=== PATIENT | female | born 1965 | race Caucasian/White ===

== ENCOUNTER 2019-11-30 16:56 | Observation (INO) | payer SELFPAY ==
[2019-11-30] MEDS ORDERED: Aspirin 325 MG TAB ONE (17:21)
--- NOTE | 2019-11-30 17:31 | CT ---
CT BRAIN WITHOUT CONTRAST: 11/30/19 HISTORY: 53-year-old female with slurred speech, dizziness, facial drooping, visual disturbances. Level II str enrique. FINDINGS: No evidence of acute infarct, hemorrhage, midline shift or abnormal extra-axial fluid collections are seen. The ventricular size is normal and the basilar cisterns patent. The bony calvarium is intact. The visualized paranasal sinuses and mastoid air cells are well aerated. IMPRESSION: No CT evidence of acute intracranial process. Discussed over the telephone with ER physician, Dr. Gt Alonso at 5:14 p.m. Code SHARA POS: JORDON
[2019-11-30 17:51] LABS: PTT 31.6 SEC (22.9-36.1); Prothrombin Time 12.7 SEC (12.0-14.7)
[2019-11-30 17:54] LABS: Hemoglobin 20.9 g/dL (12.0-16.0); Mean Corpuscular HGB CONC 34.4 g/dL (32.0-36.0); Mean Corpuscular Hemoglobin 34.3 pg (27.0-31.0); Mean Corpuscular Volume 99.8 fL (78.0-98.0); Mean Platelet Volume 7.9 fL (7.4-10.4); Platelet Count 256 thou/uL (130-400); RBC Distribution Width 12.7 % (11.5-14.5); Red Blood Cell (RBC) Count 6.07 mill/uL (4.20-5.40); White Blood Cell (WBC) Count 9.4 thou/uL (4.8-10.8)
[2019-11-30 17:58] LABS: ALT (SGPT) 42 U/L (8-55); AST (SGOT) 45 U/L (5-34); Albumin 4.7 g/dL (3.5-5.0); Alkaline Phosphatase 67 U/L (40-110); Anion Gap 21 mmol/L (10-20); BUN (Urea Nitrogen) 7 mg/dL (9.8-20.1); Bilirubin, Total 0.4 mg/dL (0.2-1.2); CK (CPK) 51 U/L (29-168); Calc. Creatinine Clearance 0 mL/min (70-130); Calcium 9.8 mg/dL (7.8-10.44); Carbon Dioxide 19 mmol/L (22-29); Chloride 103 mmol/L (98-107); Estimated GFR-MDRD 80; Globulin 3.3 g/dL (2.4-3.5); Glucose 117 mg/dL (70-105); Potassium 4.7 mmol/L (3.5-5.1); Sodium 138 mmol/L (136-145)
[2019-11-30 18:00] LABS: #Basophils 0.1 thou/uL (0.0-0.2); #Eosinphils 0.2 thou/uL (0.0-0.7); #Lymphocytes 1.8 thou/uL (1.20-3.40); #Monocytes 0.7 thou/uL (0.11-0.59); #Neutrophils 6.6 thou/uL (1.40-6.50); %Basophils 0.7 % (0.0-1.0); %Lymphocytes 18.9 % (21.0-51.0); %Monocytes 7.8 % (0.0-10.0); %Neutrophils 70.6 % (42.0-75.0)
[2019-11-30] MEDS ORDERED: Lorazepam 2 MG/ML VIAL SLOW IVP PRN (20:06)
[2019-11-30] MEDS ORDERED: Diazepam 5 MG TAB PO PRN (20:42)
[2019-11-30] MEDS ORDERED: Acetaminophen 650 MG Suppository PR PRN (20:47)
[2019-11-30] MEDS ORDERED: Acetaminophen 325 MG TAB PO PRN (20:47)
[2019-11-30] MEDS ORDERED: Ondansetron PF 4 MG/2 ML Vial IVP PRN (20:47)
[2019-11-30 20:51] LABS: Hemoglobin 19.6 g/dL (12.0-16.0)
[2019-11-30 20:56] VITALS: BMI 29.4
[2019-11-30] MEDS ORDERED: Diazepam 5 MG TAB PO SCH (21:00)
[2019-11-30] MEDS ORDERED: Thiamine HCl 200 MG/2 ML VIAL IM SCH (21:00)
[2019-11-30] MEDS ORDERED: Nicotine 14 MG PATCH TD SCH (21:00)
[2019-11-30] MEDS ORDERED: Atorvastatin Calcium 40 MG TAB PO SCH (21:00)
--- NOTE | 2019-11-30 21:35 | HP ---
TIME OF ASSESSMENT: 1899 CHIEF COMPLAINT: Dizziness and slurred speech. PRIMARY CARE PHYSICIAN: Dr. Ferrari. HISTORY OF PRESENT ILLNESS: Ms. Bae is a 53-year-old woman with a history of essential hypertension, vertigo, and heavy alcohol use, who presents to the emergency department after developing sudden onset dizziness that lasted approximately 26 minutes according to the patient. She had experienced similar symptoms like this before with vertigo; however, what was unusual was vision changes that she experienced as well. She states she felt as if her eyes were bouncing up and down and she was unable to focus on her vision. This has since resolved. She states her boyfriend noted slurring of her speech, but she does not recall experiencing that. Denies any facial numbness or weakness, but does report numbness and tingling of her tongue and lips. Denies any extremity numbness or weakness. She is unsure of any staggering gait due to not attempting to walk when this happened. She was carried to the ambulance by EMS. She states by the time they arrived to her home, her symptoms had settled. On arrival to the emergency department, she was back to baseline. The patient denies having any headaches. No nausea or vomiting. No chest pain or palpitations or shortness of breath. She has not had any recent fevers or chills. She does report feeling jittery when she does not drink, but denies any history of alcohol withdrawal seizures. The patient states she tends to drink 6 to 8 glasses of wine or 12-ounce cans of beer a day. Denies any drug use. EMERGENCY DEPARTMENT COURSE: In the emergency department, the patient underwent CT imaging of her head, which showed no acute intracranial process. LABORATORY DATA: She had laboratory studies done, which showed a white count of 9.4, hemoglobin 20.9, hematocrit 60.6, platelets 256, and neutrophils 78.6. Sodium 138, potassium 4.7, BUN 7, creatinine 0.76, GFR 80, glucose 117, total bilirubin 0.4, AST 45, ALT 42, alkaline phosphatase 67. CK 51, troponin negative. Albumin 4.7. She had an EKG done showing sinus tachycardia with a heart rate of 102. She was given 1 L of normal saline and 325 mg of aspirin. Her heart rate did settle down to the 80s. PAST MEDICAL HISTORY: 1. Essential hypertension. 2. Anxiety. 3. Heavy alcohol use. PAST SURGICAL HISTORY: 1. Bilateral breast implants. 2. Tubal ligation. SOCIAL HISTORY: She reports smoking 1-1/2 packs per day for 30 years. Also reports drinking 6 to 8 glasses of wine or beer a day. Denies illicit drug use. ALLERGIES: NO KNOWN DRUG ALLERGIES. CURRENT MEDICATIONS: 1. Alprazolam. 2. Norvasc. 3. Lipitor. 4. Ecotrin. 5. Valsartan. PHYSICAL EXAMINATION: GENERAL: The patient appears slightly anxious, but no real tremors. She has a generally flushed appearance. She is in no acute distress. VITAL SIGNS: Temperature 98.7, pulse 75, blood pressure 162/95, respirations 16 , and O2 saturation 97% on room air. HEENT: Normocephalic and atraumatic. Pupils are equal, round, reactive to light. Sclerae are without icterus. Oropharynx is clear. Extraocular movements are intact. No nystagmus present. Visual mcleod are intact. Oropharynx is clear. No tongue deviation. NECK: Supple. Full range of motion. CARDIAC: Regular rate and rhythm. LUNGS: Clear to auscultation bilaterally without any wheezes, rales, or rhonchi. ABDOMEN: Soft, nontender, nondistended with bowel sounds present. No guarding or rigidity. EXTREMITIES: No lower extremity edema or swelling. NEUROLOGIC: Alert and oriented x3. Facial movements normal. Facial sensation intact. Power 5/5 in all limbs. No cerebellar signs on exam. SKIN: Warm and dry with flushed appearance in her face and bilateral upper extremities. No erythema or warmth. No rashes. INVESTIGATIONS: As mentioned above in the HPI. IMPRESSION AND PLAN: Ms. Bae is a 53-year-old woman, who presented with sudden onset dizziness, speech changes and vision changes lasting approximately 30 minutes that have fully resolved. She is being admitted for the following. 1. Transient ischemic attack, rule out. CT brain done in the emergency department unremarkable. We will plan for an MRI in the morning. At present, no neuro deficits on exam. She does have a history of vertigo. States it was similar to that, but in the past, she was not experiencing speech changes or vision changes. We will continue to monitor. Consultation placed to Neurology. Patient was given aspirin in the ER. We will continue daily aspirin and start a statin. We will obtain echo. We will also check bilateral carotid Doppler. 2. Heavy alcohol use. PARISA protocol initiated. P.r.n. lorazepam for anxiety/agitation. We will check alcohol level. Also check urine drug screen. We will check thiamine, folate and vitamin B12. 3. Essential hypertension. Monitor blood pressure and resume home medication once verified. 4. Gastrointestinal prophylaxis. Famotidine 10 mg p.o. b.i.d. 5. Deep venous thrombosis prophylaxis. The patient is ambulatory. 6. Code status: Full. Surrogate decision maker is her boyfriend Jeremiah Ordaz. Case discussed with the attending who agrees with plan of care as described above. Job ID: [id number]
[2019-11-30] MEDS: Famotidine 20 MG TAB PO SCH (22:17)
--- NOTE | 2019-11-30 22:37 | ULT ---
Ultrasound Doppler duplex carotid: DATE: 11/30/2019 HISTORY: 53-year-old female with TIA/CVA: Dizziness, visual changes, and hypesthesia of tongue and lips. TECHNIQUE: Grayscale, color-flow, and spectral analysis, of major arteries of neck. FINDINGS: There is mild plaque at the bilateral carotid bulbs. Prominent bilateral cervical lymph nodes are noted. Highest peak systolic velocities of internal carotid arteries: Right internal carotid: 85 cm/s Left internal carotid: 75 cm/s Vertebral artery flow is antegrade bilaterally. IMPRESSION: 1. Mild atherosclerosis of origins of bilateral internal carotid arteries. 2. No evidence of hemodynamically significant stenosis
[2019-11-30 23:08] LABS: Bacteria/HPF 2+ HPF (None Seen); Bilirubin Negative (Negative); Blood, Urine Negative (Negative); Clarity Clear (Clear); Glucose, Urine (Dipstick) 50 mg/dL (Negative); Leukocyte 25 Leu/uL (Negative); Nitrite Negative (Negative); Protein, Urine (Dipstick) Negative (Neg-Trace); RBC/HPF 0-3 HPF (0-3); Squamous Epithelial 0-3 HPF (0-3); Urobilinogen Normal mg/dL (Less than 2)
[2019-11-30 23:10] LABS: Urine Culture Reflex Yes Yes
[2019-11-30 23:18] LABS: Amphetamine Not Detected (NotDetected); Barbiturates Screen Not Detected (NotDetected); Benzodiazepine Screen Detected (NotDetected); Cocaine Metabolite Screen Not Detected (NotDetected); Medtox Control Line Valid? VALID (VALID); Medtox Reader # READER 4; Methadone Not Detected (NotDetected); Methamphetamine Not Detected (NotDetected); Opiate Screen Not Detected (NotDetected); Oxycodone Screen Not Detected (NotDetected); Phencyclidine (PCP) Not Detected (NotDetected); THC/Cannabinoid Screen Not Detected (NotDetected); Tricyclic Screen Not Detected (NotDetected)
[2019-12-01] MEDS ORDERED: Diazepam 5 MG TAB PO PRN (04:00)
[2019-12-01 07:26] VITALS: TEMP 98.1
[2019-12-01] MEDS ORDERED: FLU VACC QS2019-20(6MOS UP)/PF 60 MCG/0.5 ML SYRINGE IM ONE (09:00)
[2019-12-01] MEDS ORDERED: Multivitamin W/ Minerals 1 TAB PO SCH (09:00)
[2019-12-01] MEDS ORDERED: Magnesium Oxide 400 MG TAB PO SCH (09:00)
[2019-12-01] MEDS ORDERED: Aspirin 81 mg Enteric Coated Tablet PO SCH (09:00)
[2019-12-01] MEDS ORDERED: Folic Acid 1 MG TAB PO SCH (09:00)
[2019-12-01] MEDS ORDERED: Thiamine 100 MG TAB PO SCH (09:00)
[2019-12-01] MEDS: Famotidine 20 MG TAB PO SCH (09:23)
[2019-12-01 11:20] VITALS: BP 163/92
--- NOTE | 2019-12-01 12:14 | CON ---
DATE OF CONSULTATION: 12/01/2019 CONSULTING PHYSICIAN: Hospitalist Service. IMPRESSION: 1. Transient vertigo, possibly secondary to transient ischemic attack related to polycythemia. 2. History of tobacco use. 3. Mild hyperlipidemia. PLAN: 1. Start aspirin 81 mg per day. 2. Lipitor 40 mg per day. 3. Oncology's recommendations in regard to her polycythemia. HISTORY OF PRESENT ILLNESS: Ms. Bae is a 53-year-old woman with no significant past history other than some intermittent vertigo. She had an episode of vertigo with oscillopsia lasting about 25 minutes. There was no associated headache, nausea, vomiting, lateralized weakness or numbness. She had some perioral tingling in the past. She has never had any transient neurologic deficits otherwise. She had a CT scan of the brain done, which was unremarkable. Her carotid ultrasound was clear. Her cholesterol ratio was 5.0. Tox screen was negative. Urinalysis was unremarkable. Her H and H showed hemoglobin of 20 and hematocrit of 60. She is a regular drinker, which reportedly is both liquor and beer. She smokes on a regular basis. PAST MEDICAL HISTORY: Otherwise, negative. ALLERGIES: NONE. SOCIAL HISTORY: As noted. FAMILY HISTORY: Noncontributory. REVIEW OF SYSTEMS: Ten-system review of systems is otherwise negative. PHYSICAL EXAMINATION: VITAL SIGNS: Blood pressure 156/81, pulse 69, respirations 16, and temperature 98.1. HEENT: Pupils equal and reactive. Conjunctivae clear. Oropharynx clear. No nystagmus was present. NECK: Supple. EXTREMITIES: No cyanosis, clubbing or edema. NEUROLOGIC: She is alert and appropriate. Her speech is fluent and clear. Cranial nerves are intact. Motor exam showed equal strength. Sensations intact bilaterally. She can walk independently. No abnormal movements were seen. DIAGNOSTIC DATA: EKG shows a sinus rhythm. SUMMARY: Middle-aged woman with polycythemia and transient vertigo. We will start aspirin and Lipitor. She appears stable for discharge. She is unable to tolerate an MRI. Job ID: [id number]
--- NOTE | 2019-12-01 12:19 | CON ---
DATE OF CONSULTATION: REASON FOR CONSULTATION: Elevated hemoglobin. HISTORY OF PRESENT ILLNESS: Ms. Bae is a 53-year-old female with a history of hypertension, daily alcohol use, and tobacco use, who presented to the emergency room with acute onset of dizziness and slurred speech. She was brought to the ER by EMS. On arrival to the emergency room, her symptoms had resolved. She underwent a brain CT, which showed no evidence of acute intracranial process. She underwent a carotid Doppler study, which showed mild atherosclerosis of the bilateral internal carotid arteries. CBC was drawn, which showed a white count of 9.4, hemoglobin of 20.9, and hematocrit of 60.6. Her platelet count was 256,000. She was admitted for further workup. The patient has a 45 pack-year history of smoking. She states she drinks 8 glasses of wine per day. She does state that she drinks plenty of water as well. She states that she has never been told her hemoglobin is elevated before. She has no family history of hematological disorder or cancer. She denies any shortness of breath, chest pain, itching, or rash. She does think that she has sleep apnea. She states she wakes herself snoring several times at night. She has been seen by Neurology and started on aspirin. She has had no further symptoms since admission. PAST MEDICAL HISTORY: 1. Hypertension. 2. Heavy daily alcohol use. 3. Tobacco use. PAST SURGICAL HISTORY: 1. Bilateral breast implants. 2. Tubal ligation. ALLERGIES: NO KNOWN DRUG ALLERGIES. HOME MEDICATIONS: 1. Alprazolam p.r.n. 2. Amlodipine 10 mg daily. 3. Valsartan 160 mg daily. FAMILY HISTORY: No history of hematological disorder. SOCIAL HISTORY: Single. No children. Lives with her significant other. REVIEW OF SYSTEMS: A 10-point review of systems is negative except for noted in HPI. PHYSICAL EXAMINATION: VITAL SIGNS: Temperature is 98.1, pulse is 85, respiratory rate 16, BP is 163/92. She is 96% on room air. GENERAL: This is a well-developed, well-nourished female, in no acute distress. HEENT: Normocephalic, atraumatic. Pupils are equal and reactive to light. NECK: Supple. CV: Regular rate and rhythm. LUNGS: Clear. ABDOMEN: Soft. Bowel sounds are positive. EXTREMITIES: There is no clubbing or cyanosis. SKIN: No rash. She does have a carina complexion. HEMATOLOGICAL: No petechiae or purpura. NEUROLOGICAL: Nonfocal. PERTINENT LABS AND X-RAYS: Current hemoglobin is 19.6, hematocrit is 57.7. PT is 12.7, INR is 1, PTT is 31.6. Sodium 138, potassium 4.7, chloride 103, CO2 is 19, BUN is 7, creatinine 0.76, calcium 9.8, bilirubin 0.4, AST is 45, ALT is 42, alkaline phosphatase is 67, creatine kinase 51. Troponin is negative. Serum total protein is 8, albumin 4.7, globulin 3.3. B12 is 307, folate is 8.4. She has 2+ bacteria in her urine. Her drug screen was positive for benzos. Radiology per history of present illness. ASSESSMENT: 1. Polycythemia vera, likely secondary to obstructive sleep apnea and heavy tobacco use. 2. Transient ischemic attack, resolved. DISCUSSION: The patient likely has secondary polycythemia both from tobacco use and obstructive sleep apnea. She was instructed to stop smoking or at least cut back if possible. I recommend that she is to stay on aspirin daily. She will have a JAK2 and erythropoietin drawn here. She was instructed to follow up in our clinic next week to begin phlebotomy. I encouraged her to stay well hydrated and cut back on alcohol. She can be discharged from our perspective to begin treatment next week. Thank you for the consult. Job ID: [id number]
--- NOTE | 2019-12-01 14:00 | DIS ---
DATE OF ADMISSION: 11/30/2019 DATE OF DISCHARGE: 12/01/2019 PRIMARY CARE PROVIDER: Dr. Rodney Ferrari. DISPOSITION: Discharged home. FINAL DIAGNOSES: Dizziness, presumptive TIA diagnosis, polycythemia secondary, nicotine dependence, hypertension, alcohol dependence. DISCHARGE MEDICATIONS: 1. Valsartan 160 mg p.o. daily. 2. Amlodipine 10 mg a day. 3. Lipitor 40 mg a day. 4. Aspirin 81 mg a day. DIET: Heart healthy. CODE STATUS: Full. PENDING AT TIME OF DISCHARGE: An echocardiogram was done and is pending. ALLERGIES: TO MEDICATIONS, NONE. HOSPITAL COURSE: The patient was admitted to the Hospitalist Service through [facility] with a diagnosis of dizziness, slurred speech. She was placed in the hospital. CT scan of the brain was unremarkable. Carotid Doppler was unremarkable. The patient was seen in consultation by Neurology and Hematology, who stated the patient could go home. Neurology recommended statin plus aspirin. MRI of the brain was canceled after that. Laboratory studies done in the emergency room, comprehensive metabolic profile; sodium of 138, potassium 4.7, CO2 of 19, creatinine 0.76, BUN 7. Vitamin B12 was 307, folate was 8.4, ammonia level was 28. INR was 1.0. Hematology; hemoglobin 20.9, followup 19.6, white cell count 9.4, platelet count 256,000. Urine drug screen is only positive for benzodiazepine. Carotid ultrasound revealed no stenosis. The patient is being discharged to follow up with PCP in 3 days. Followup has been arranged with Oncology, Dr. Jose Miguel Mccracken for 04/20 at 10:30 a.m. Job ID: [id number]
== END 2019-12-01 12:25 | disposition home or self-care (01) ==
LOC: ERS 16:56 → 2SE 18:52
PROVIDERS: ADMIT Family Medicine; ATTEND Family Medicine
DX: R42 Dizziness and giddiness (principal); R47.81 Slurred speech; H53.8 Other visual disturbances; R29.810 Facial weakness; D75.1 Secondary polycythemia; F17.210 Nicotine dependence, cigarettes, uncomplicated; I10 Essential (primary) hypertension; F10.20 Alcohol dependence, uncomplicated; F41.9 Anxiety disorder, unspecified; I65.23 Occlusion and stenosis of bilateral carotid arteries; E78.5 Hyperlipidemia, unspecified; Z79.899 Other long term (current) drug therapy
CPT/HCPCS: 36415; 36416; 70450; 80053; 80061; 80306; 80307; 81001; 82140; 82550; 82607; 82746; 84425; 84484; 85025; 85610; 85730; 87077; 87086; 87186; 90471; 90686; 90732; 93005; 93306; 93880; 94760; 96360; 96361; 96365; 96372; G0008; G0009; G0378; J3411; J3475; J3490